=== PATIENT | female | born 1945 | race Caucasian/White ===

== ENCOUNTER 2017-02-04 21:32 | Inpatient (IN) | payer OTHER ==
[2017-02-04 23:21] VITALS: PULSE 63
[2017-02-05] VITALS (11 sets, daily range): BP systolic 104–148; BP diastolic 56–70; PULSE 59–72; RESP 18–19
[2017-02-05] MEDS ORDERED: HYDROCODONE/APAP (5/325) TAB PO PRN (03:00)
[2017-02-05] MEDS ORDERED: ONDANSETRON 4 MG INJ IV PRN (03:00)
[2017-02-05 08:37] LABS: BASOPHILS % 0.6 % (0.0-2.0); EOSINOPHILS # 0.2 10^3/ul (0.0-0.5); EOSINOPHILS % 3.3 % (0.0-7.0); HEMATOCRIT 46.5 % (37.0-47.0); HEMOGLOBIN 16.7 g/dl (12.0-16.0); LYMPHOCYTES # 2.4 10^3/ul (0.8-2.9); LYMPHOCYTES % 43.6 % (15.0-51.0); MEAN CORPUSCULAR HEMOGLOBIN 33.2 pg (29.0-33.0); MEAN CORPUSCULAR HGB CONC 35.9 g/dl (32.0-37.0); MEAN CORPUSCULAR VOLUME 92.4 fl (82.0-101.0); MEAN PLATELET VOLUME 11.8 fl (7.4-10.4); MONOCYTE # 0.4 10^3/ul (0.3-0.9); MONOCYTES % 8.1 % (0.0-11.0); NEUTROPHIL # 2.4 10^3/ul (1.6-7.5); NEUTROPHILS % 44.2 % (39.0-77.0); PLATELET COUNT 148 10^3/UL (140-415); RED BLOOD COUNT 5.03 10^6/ul (4.20-5.40); RED CELL DISTRIBUTION WIDTH 11.9 % (11.5-14.5); WHITE BLOOD COUNT 5.4 10^3/ul (4.8-10.8)
[2017-02-05] MEDS ORDERED: GABAPENTIN 100 MG CAP PO SCH (09:00)
[2017-02-05 09:18] LABS: CALCIUM 8.6 mg/dl (8.4-10.2); CREATININE 0.54 mg/dl (0.44-1.00); PHOSPHORUS 4.3 mg/dl (2.5-4.9); POTASSIUM 3.6 mmol/L (3.5-5.1)
--- NOTE | 2017-02-05 12:08 | HP ---
Date/Time of Note Date/Time of Note DATE: 02/05/17 TIME: 12:06 Assessment/Plan VTE Prophylaxis VTE Prophylaxis Intervention: SCD's Lines/Catheters IV C[facility]ter Type (from [facility]): [facility] Urinary Cath still in place: No Assessment/Plan Chief Complaint/Hosp Course 1. Seizure disorder with fall. 2. Anemia 3. Hypertension 4. Epilepsy 5. Schizophrenia. 6.GERD 7. obesity 8. dyslipidemia Problems: Assessment/Plan 1. continue seizure precautions 2. Dilantin on hold 3. Neurology Dr. Neal is on case 4. level Dilantin tomorrow 5. continue home meds HPI/ROS Admit Date/Time Admit Date/Time Feb 04, 2017 at 23:07 Hx of Present Illness Pt was [facility] [place] [facility] for increased seizure activity and recent seizure with fall to [facility]. Upon presentation, pt Dilantin level was high, 32, supratherapeutic. Pt was transferred from [facility] per insurance request. She had a nystagmus in [facility], no ataxia ROS poor response Subjective hx not possible: other (poor historian, does not remember) PMH/Family/Social Past Medical History Medical History: GERD, high cholesterol, hypertension Past Surgical History unable to determine pt is a poor historian Past Surgical Hx: no surgical history, other (Appendectomy. tubal ligatoion, tonsilectomy) Family History Significant Family History: diabetes Social History Alcohol Use: none Smoking Status: Never smoker Drug Use: none Exam/Review of Systems Vital Signs Vitals Vital Signs Date Time Temp Pulse Resp B/P Pulse Ox O2 Delivery O2 Flow Rate FiO2 02/05/17 11:43 98.0 55 19 104/65 96 Intake and Output 02/04/17 02/04/17 02/05/17 15:00 23:00 07:00 Intake Total 200 ml Output Total 3 ml Balance 197 ml Exam Constitutional: alert (name) Eyes: nl conjunctiva ENMT: nl external ears & nose Respiratory: diminished breath sounds Cardiovascular: regular rate and rhythm Gastrointestinal: soft Genitourinary - Female: nl adnexae Extremities: normal pulses Skin: nl turgor Lymph: nl lymph nodes Labs Result Diagram: 02/05/17 0745 02/05/17 0745 Medications Medications Current Medications Acetaminophen/ Hydrocodone Bitart ([place] (5/325)) 1 tab Q4H PRN PO pain; Start 02/05/17 at 03:00 Ondansetron HCl (Zofran Inj) 4 mg Q6H PRN IV NAUSEA AND/OR VOMITING; Start 02/11 at 03:00 Gabapentin (Neurontin) 100 mg TID PO Last administered on 02/05/17t 09:04; Admin Dose 100 MG; Start 02/05/17 at 09:00 FAUSTO OBRIEN Feb 05, 2017 12:08
[2017-02-05] MEDS ORDERED: LORAZEPAM 2 MG INJ IV PRN (12:30)
[2017-02-05] MEDS: GABAPENTIN 100 MG CAP PO SCH ×2 (13:52→21:20)
[2017-02-05] MEDS: METOPROLOL (XL) 25 MG TAB PO SCH (13:52)
[2017-02-05] MEDS: PHENOBARBITAL 32.4 MG TAB PO SCH (16:00)
--- NOTE | 2017-02-05 16:47 | CONS ---
DATE OF ADMISSION: 02/04/2017 DATE OF CONSULTATION: 02/05/2017 TYPE OF CONSULTATION: Neurology. Thank you for your kind referral for evaluation of intractable seizures. HISTORY OF PRESENT ILLNESS: The patient is a 71-year-old lady with lifelong history of seizures, wa s transferred from [facility]. She was taken to [facility] following a seizure at [facility]. She told me that she has history of generalized seizures since age 9 and usual frequency of seizures about once a month. MEDICATIONS: According to the chart, she was taking gabapentin, lamotrigine, phenobarbital and Dila ntin. There is some conflicting data regarding medication dosing, so I called the facility at [phone] and talked to a staff member there. According to him, patient is refusing all her medicatio ns with exception of Dilantin. I was told that the patient was getting Dilantin 1 two times a day. They are supposed to fax us medication administration note. Other medications which she was suppos to take were: 1. Lamotrigine 100 mg once a day. 2. Phenobarbital 64.8 twice daily. 3. Gabapentin 100 three times a day. 4. She was also supposed take Sertraline. 5. Aspirin. 6. Abilify. 7. Atorvastatin. Her Dilantin level is 36. It was put on hold and patient was transferred here. PAST MEDICAL HISTORY: Dyslipidemia, schizophrenia. SOCIAL HISTORY: No alcohol, tobacco, drug use. FAMILY HISTORY: Noncontributory. PHYSICAL EXAMINATION VITAL SIGNS: Today, 98.0 temperature, pulse 55, 19 respirations, 104/65 blood pressure. GENERAL: She is not in acute distress, lying in bed. HEENT: Normocephalic, atraumatic head. NECK: No carotid bruits. No thyromegaly. LUNGS: Clear to auscultation bilaterally. CARDIAC: Normal cardiac rhythm and sounds. ABDOMEN: Soft, nontender. EXTREMITIES: No cyanosis, clubbing or edema. NEUROLOGIC: She is awake, alert, and oriented x2. She knows the year, but not the date, and the mo nth. Fluent speech. Overall, cooperative with examination. Present response to visual threat bila terally. Pupils reactive from 3 to 2 mm bilaterally. Extraocular movements intact without nystagmu s. Symmetrical face. Preserved facial strength and sensation. Tongue is in midline. Palate eleva ashish symmetrically. Motor strength examination seems to be preserved in all extremities. Normal bul k, tone, and strength. Sensory examination intact to light touch, pain and vibration. Deep tendon reflexes 2+ upper extremities, absent in lower extremities. Downgoing toes bilaterally. Coordinati on preserved on uziytx-ab-awyrus testing. No dysmetria or tremor. Gait essentially normal. CURRENT MEDICATIONS: Patient's medications here include: 1. Protonix 40. 2. Iron. 3. Atorvastatin 40. 4. Gabapentin 100 three times a day. 5. [place] p.r.n. 6. Zofran. Her labs show normal CBC, normal basic metabolic panel. Dilantin level 34 today. IMPRESSION: Intractable seizure disorder. The patient is noncompliant with most of her medications and the only medication she was compliant with caused her to have toxic level. There were some com plaints of dizziness prior to admission, not anymore. Patient states to me that she wants to continue her phenobarbital and that she thought she was takin g at her facility, not Dilantin, so I think it is reasonable to restart her phenobarbital 64.8 mg tw ice daily. Continue not restarting Dilantin, checking her Dilantin level. Thank you very much for this interesting consultation. I forgot to mention, the patient has some orolingual dystonic movements. Given her history of schiz ophrenia, likely tardive dyskinesia. Dictated By: CRIS PEGUERO/MAKENZIE Conf#: [id number] DID#: [id number] CC: JOSE DAVID MURILLO MD;*End*
[2017-02-05] MEDS: FERROUS SULFATE (SR) 142 MG TAB PO SCH (21:20)
[2017-02-05] MEDS: ATORVASTATIN 40 MG TAB PO SCH (21:20)
[2017-02-06] VITALS (12 sets, daily range): BP systolic 91–110; BP diastolic 50–58; PULSE 57–61; RESP 18
[2017-02-06] MEDS: PANTOPRAZOLE (EC) 40 MG TAB PO SCH (05:35)
[2017-02-06 07:27] LABS: BASOPHILS % 0.3 % (0.0-2.0); EOSINOPHILS # 0.2 10^3/ul (0.0-0.5); EOSINOPHILS % 2.1 % (0.0-7.0); HEMATOCRIT 46.9 % (37.0-47.0); HEMOGLOBIN 15.7 g/dl (12.0-16.0); LYMPHOCYTES # 2.6 10^3/ul (0.8-2.9); LYMPHOCYTES % 29.7 % (15.0-51.0); MEAN CORPUSCULAR HEMOGLOBIN 31.8 pg (29.0-33.0); MEAN CORPUSCULAR HGB CONC 33.5 g/dl (32.0-37.0); MEAN CORPUSCULAR VOLUME 95.1 fl (82.0-101.0); MEAN PLATELET VOLUME 11.4 fl (7.4-10.4); MONOCYTE # 0.6 10^3/ul (0.3-0.9); MONOCYTES % 6.6 % (0.0-11.0); NEUTROPHIL # 5.3 10^3/ul (1.6-7.5); PLATELET COUNT 188 10^3/UL (140-415); RED BLOOD COUNT 4.93 10^6/ul (4.20-5.40); RED CELL DISTRIBUTION WIDTH 12.4 % (11.5-14.5); WHITE BLOOD COUNT 8.8 10^3/ul (4.8-10.8)
[2017-02-06 08:08] LABS: ALBUMIN 3.6 g/dl (3.3-4.9); ALBUMIN/GLOBULIN RATIO 1.09; BILIRUBIN,INDIRECT 0.2 mg/dl (0-1.1); BILIRUBIN,TOTAL 0.2 mg/dl (0.2-1.3); CALCIUM 8.6 mg/dl (8.4-10.2); CREATININE 0.56 mg/dl (0.44-1.00); POTASSIUM 3.9 mmol/L (3.5-5.1); TOTAL PROTEIN 6.9 g/dl (6.1-8.1)
[2017-02-06] MEDS: GABAPENTIN 100 MG CAP PO SCH ×3 (08:25→20:26)
[2017-02-06] MEDS: FERROUS SULFATE (SR) 142 MG TAB PO SCH (08:25)
[2017-02-06] MEDS: METOPROLOL (XL) 25 MG TAB PO SCH (08:26)
[2017-02-06] MEDS: PHENOBARBITAL 32.4 MG TAB PO SCH ×2 (08:26→20:26)
--- NOTE | 2017-02-06 08:56 | PN ---
Date/Time of Note Date/Time of Note DATE: 02/06/17 TIME: 08:55 Assessment/Plan VTE Prophylaxis VTE Prophylaxis Intervention: ambulation Lines/Catheters IV [facility]ter Type (from [facility] Saline Lock Urinary Cath still in place: No Assessment/Plan Chief Complaint/Hosp Course 1. Seizure disorder with fall. 2. Anemia 3. Hypertension 4. Epilepsy 5. Schizophrenia. 6.GERD 7. obesity 8. dyslipidemia Problems: Assessment/Plan 1. Continue medications 2. continue seizure precautions. Subjective 24 Hr Interval Summary Free Text/Dictation do not feel well Exam/Review of Systems Vital Signs Vitals Vital Signs Date Time Temp Pulse Resp B/P Pulse Ox O2 Delivery O2 Flow Rate FiO2 02/06/17 08:07 99.1 60 18 109/58 94 Intake and Output 02/05/17 02/05/17 02/06/17 15:00 23:00 07:00 Intake Total 650 ml 300 ml Output Total 4 ml 3 ml Balance 646 ml 297 ml Exam Constitutional: alert, oriented Eyes: nl conjunctiva Neck: supple Respiratory: clear to auscultation Cardiovascular: regular rate and rhythm Gastrointestinal: soft Results Result Diagram: 02/06/17 0645 02/06/17 0645 Results 24 hrs Laboratory Tests Test 02/06/17 06:45 White Blood Count 8.8 # Red Blood Count 4.93 Hemoglobin 15.7 Hematocrit 46.9 Mean Corpuscular Volume 95.1 Mean Corpuscular Hemoglobin 31.8 Mean Corpuscular Hemoglobin Concent 33.5 Red Cell Distribution Width 12.4 Platelet Count 188 # Mean Platelet Volume 11.4 H Neutrophils % 61.0 Lymphocytes % 29.7 Monocytes % 6.6 Eosinophils % 2.1 Basophils % 0.3 Nucleated Red Blood Cells % 0.0 Neutrophils # 5.3 Lymphocytes # 2.6 Monocytes # 0.6 Eosinophils # 0.2 Basophils # 0.0 Nucleated Red Blood Cells # 0.0 Sodium Level 140 Potassium Level 3.9 Chloride Level 100 Carbon Dioxide Level 32 H Anion Gap 12 Blood Urea Nitrogen 16 Creatinine 0.56 Glucose Level 91 Calcium Level 8.6 Total Bilirubin 0.2 Direct Bilirubin 0.00 Indirect Bilirubin 0.2 Aspartate Amino Transf (AST/SGOT) 50 H Alanine Aminotransferase (ALT/SGPT) 53 Alkaline Phosphatase 192 H Total Protein 6.9 Albumin 3.6 Globulin 3.30 H Albumin/Globulin Ratio 1.09 Phenytoin (Dilantin) Level Pending Medications Medications Current Medications Acetaminophen/ Hydrocodone Bitart ([place] (5/325)) 1 tab Q4H PRN PO pain; Start 02/05/17 at 03:00 Ondansetron HCl (Zofran Inj) 4 mg Q6H PRN IV NAUSEA AND/OR VOMITING; Start 02/11 at 03:00 Lorazepam (Ativan) 1 mg Q6H PRN IV ANXIETY and seizures; Start 02/05/17 at 12: 30 Pantoprazole (Protonix Tab) 40 mg DAILY@06 PO Last administered on 02/06/17 05:35; Admin Dose 40 MG; Start 02/06/17 at 06:00 Gabapentin (Neurontin) 100 mg TID PO Last administered on 02/06/17 08:25; Admin Dose 100 MG; Start 02/05/17 at 13:00 Ferrous Sulfate (Slow Fe) 142 mg BID PO Last administered on 02/06/17 08:25; Admin Dose 142 MG; Start 02/05/17 at 21:00 Metoprolol Succinate (Toprol Xl) 25 mg DAILY PO Last administered on 08:26; Admin Dose 25 MG; Start 02/05/17 at 12:30 Atorvastatin Calcium (Lipitor) 40 mg HS PO Last administered on 02/05/17 21: 20; Admin Dose 40 MG; Start 02/05/17 at 21:00 Phenobarbital (Luminal) 64.8 mg BID PO Last administered on 02/06/17 08:26; Admin Dose 64.8 MG; Start 02/05/17 at 16:00 FAUSTO OBRIEN Feb 06, 2017 08:56
[2017-02-06] MEDS: ENOXAPARIN 30 MG/0.3 ML SYG SC SCH (10:04)
--- NOTE | 2017-02-06 15:12 | CONS ---
Date/Time of Note Date/Time of Note DATE: 02/06/17 TIME: 15:00 Consult Date/Type/Reason Admit Date/Time Feb 04, 2017 at 23:07 Initial Consult Date Type of Consultation: neurology Subjective no seizures Objective Vital Signs Date Time Temp Pulse Resp B/P Pulse Ox O2 Delivery O2 Flow Rate FiO2 02/06/17 12:04 98.7 55 18 110/53 94 Intake and Output 02/05/17 02/05/17 02/06/17 15:00 23:00 07:00 Intake Total 650 ml 300 ml Output Total 4 ml 3 ml Balance 646 ml 297 ml Results/Medications Result Diagram: 02/06/17 0645 02/06/17 0645 Results 24 hrs Laboratory Tests Test 02/06/17 06:45 White Blood Count 8.8 # Red Blood Count 4.93 Hemoglobin 15.7 Hematocrit 46.9 Mean Corpuscular Volume 95.1 Mean Corpuscular Hemoglobin 31.8 Mean Corpuscular Hemoglobin Concent 33.5 Red Cell Distribution Width 12.4 Platelet Count 188 # Mean Platelet Volume 11.4 H Neutrophils % 61.0 Lymphocytes % 29.7 Monocytes % 6.6 Eosinophils % 2.1 Basophils % 0.3 Nucleated Red Blood Cells % 0.0 Neutrophils # 5.3 Lymphocytes # 2.6 Monocytes # 0.6 Eosinophils # 0.2 Basophils # 0.0 Nucleated Red Blood Cells # 0.0 Sodium Level 140 Potassium Level 3.9 Chloride Level 100 Carbon Dioxide Level 32 H Anion Gap 12 Blood Urea Nitrogen 16 Creatinine 0.56 Glucose Level 91 Calcium Level 8.6 Total Bilirubin 0.2 Direct Bilirubin 0.00 Indirect Bilirubin 0.2 Aspartate Amino Transf (AST/SGOT) 50 H Alanine Aminotransferase (ALT/SGPT) 53 Alkaline Phosphatase 192 H Total Protein 6.9 Albumin 3.6 Globulin 3.30 H Albumin/Globulin Ratio 1.09 Phenytoin (Dilantin) Level 18.6 Medications Current Medications Acetaminophen/ Hydrocodone Bitart ([place] (5/325)) 1 tab Q4H PRN PO pain; Start 02/05/17 at 03:00 Ondansetron HCl (Zofran Inj) 4 mg Q6H PRN IV NAUSEA AND/OR VOMITING; Start 02/11 at 03:00 Lorazepam (Ativan) 1 mg Q6H PRN IV ANXIETY and seizures; Start 02/05/17 at 12: 30 Pantoprazole (Protonix Tab) 40 mg DAILY@06 PO Last administered on 02/06/17 05:35; Admin Dose 40 MG; Start 02/06/17 at 06:00 Gabapentin (Neurontin) 100 mg TID PO Last administered on 02/06/17 12:25; Admin Dose 100 MG; Start 02/05/17 at 13:00 Ferrous Sulfate (Slow Fe) 142 mg BID PO Last administered on 02/06/17 08:25; Admin Dose 142 MG; Start 02/05/17 at 21:00 Metoprolol Succinate (Toprol Xl) 25 mg DAILY PO Last administered on 08:26; Admin Dose 25 MG; Start 02/05/17 at 12:30 Atorvastatin Calcium (Lipitor) 40 mg HS PO Last administered on 02/05/17 21: 20; Admin Dose 40 MG; Start 02/05/17 at 21:00 Phenobarbital (Luminal) 64.8 mg BID PO Last administered on 02/06/17 08:26; Admin Dose 64.8 MG; Start 02/05/17 at 16:00 Enoxaparin Sodium (Lovenox) 30 mg DAILY SC Last administered on 02/06/17 10: 04; Admin Dose 30 MG; Start 02/06/17 at 09:00 Assessment/Plan Chief Complaint/Hosp Course NEUROLOGIC: She is awake, alert, and oriented x2. Fluent speech. Overall, cooperative with examination. Present response to visual threat bilaterally. Pupils reactive from 3 to 2 mm bilaterally. Extraocular movements intact without nystagmus. Symmetrical face. Preserved facial strength and sensation. Tongue is in midline. Palate elevates symmetrically. Motor strength examination seems to be preserved in all extremities. Normal bulk, tone, and strength. Sensory examination intact to light touch, pain and vibration. Deep tendon reflexes 2+ upper extremities, absent in lower extremities. Downgoing toes bilaterally. Coordination preserved on kmsfty-bj-zmfiat testing. No dysmetria or tremor. orolingual dystonic movements Dilantin level 18 today. IMPRESSION: Intractable seizure disorder. The patient has been noncompliant with most of her medications. Hx of fluctuating dilantin levels, frequently toxic range, per [facility] records. Patient states that she wants to continue her phenobarbital, was restarted on phenobarbital 64.8 mg twice daily. OK not to start dilantin, or other medications, she has been refusing in the past. PT eval of gait Problems: CRIS IVERSON MD Feb 06, 2017 15:12
[2017-02-06] MEDS: ATORVASTATIN 40 MG TAB PO SCH (20:26)
[2017-02-07] VITALS (13 sets, daily range): BP systolic 87–115; BP diastolic 47–64; PULSE 54–61; RESP 14–19
[2017-02-07] MEDS: FERROUS SULFATE (SR) 142 MG TAB PO SCH ×3 (00:53→21:00)
[2017-02-07] MEDS: PANTOPRAZOLE (EC) 40 MG TAB PO SCH (05:07)
[2017-02-07] MEDS: GABAPENTIN 100 MG CAP PO SCH ×3 (09:12→20:53)
[2017-02-07] MEDS: PHENOBARBITAL 32.4 MG TAB PO SCH ×2 (09:13→20:54)
[2017-02-07] MEDS: METOPROLOL (XL) 25 MG TAB PO SCH (09:13)
[2017-02-07] MEDS: ENOXAPARIN 30 MG/0.3 ML SYG SC SCH (09:14)
--- NOTE | 2017-02-07 13:24 | PN ---
Date/Time of Note Date/Time of Note DATE: 02/07/17 TIME: 13:14 Assessment/Plan VTE Prophylaxis VTE Prophylaxis Intervention: LMWH Lines/Catheters IV Catheter Type (from Nrs): Saline Lock Urinary Cath still in place: No Assessment/Plan Chief Complaint/Hosp Course 71 y/o with # Fall with poor balance , ataxic gait? cerebellum involvement # Seizure disorder with fall. # Anemia #. Hypertension # Epilepsy # Schizophrenia. #.GERD #. obesity # dyslipidemia Recs - Spoke to Dr Espinosa. will do MRI brain/brainstem today to r/o brainstem ischemia - c/w ASA/ statin - Spoke to Dr Espinosa who spoke to facility where she was residing pt was refusing all meds except dilantin, pt was supposed to be on multiple meds, will continue on pheobarb and gabapentin for now - restart ariprazole 15 mg - Pt will likely need Snif Problems: Subjective 24 Hr Interval Summary Free Text/Dictation Pt ataxic, leans from side to side upon ambulation No seizures Exam/Review of Systems Vital Signs Vitals Vital Signs Date Time Temp Pulse Resp B/P Pulse Ox O2 Delivery O2 Flow Rate FiO2 02/07/17 12:14 57 02/07/17 11:32 98.0 19 96/53 96 Intake and Output 02/06/17 02/06/17 02/07/17 15:00 23:00 07:00 Intake Total 650 ml 360 ml Balance 650 ml 360 ml Exam HEENT: Normocephalic, atraumatic head. NECK: No carotid bruits. No thyromegaly. LUNGS: Clear to auscultation bilaterally. CARDIAC: Normal cardiac rhythm and sounds. ABDOMEN: Soft, nontender. EXTREMITIES: No cyanosis, clubbing or edema. NEUROLOGIC: She is awake, alert, and oriented x2. She knows the year, but not the date, and the month. Fluent speech. Overall, cooperative with examination. Pres. Deep tendon reflexes 2+ upper extremities, absent in lower extremities. Downgoing toes bilaterally. Coordination preserved on finger-to- finger testing. No dysmetria or tremor. Gait leans side to side Results Result Diagram: 02/06/17 0645 02/06/1745 Medications Medications Current Medications Acetaminophen/ Hydrocodone Bitart ([place] (5/325)) 1 tab Q4H PRN PO pain; Start 02/05/17 at 03:00 Ondansetron HCl (Zofran Inj) 4 mg Q6H PRN IV NAUSEA AND/OR VOMITING; Start 02/11 at 03:00 Lorazepam (Ativan) 1 mg Q6H PRN IV ANXIETY and seizures; Start 02/05/17 at 12: 30 Pantoprazole (Protonix Tab) 40 mg DAILY@06 PO Last administered on 02/07/17 05:07; Admin Dose 40 MG; Start 02/06/17 at 06:00 Gabapentin (Neurontin) 100 mg TID PO Last administered on 02/07/17 09:12; Admin Dose 100 MG; Start 02/05/17 at 13:00 Ferrous Sulfate (Slow Fe) 142 mg BID PO Last administered on 02/07/17 00:53; Admin Dose 142 MG; Start 02/05/17 at 21:00 Metoprolol Succinate (Toprol Xl) 25 mg DAILY PO Last administered on 09:13; Admin Dose 25 MG; Start 02/05/17 at 12:30 Atorvastatin Calcium (Lipitor) 40 mg HS PO Last administered on 02/06/17 20: 26; Admin Dose 40 MG; Start 02/05/17 at 21:00 Phenobarbital (Luminal) 64.8 mg BID PO Last administered on 02/07/17 09:13; Admin Dose 64.8 MG; Start 02/05/17 at 16:00 Enoxaparin Sodium (Lovenox) 30 mg DAILY SC Last administered on 02/07/17 09: 14; Admin Dose 30 MG; Start 02/06/17 at 09:00 DOLLY DE SOUZA MD Feb 07, 2017 13:24
[2017-02-07] MEDS: ASPIRIN (EC) 81 MG TAB PO SCH (15:11)
--- NOTE | 2017-02-07 15:21 | RADRPT ---
PROCEDURE: US Carotids. CLINICAL INDICATION: bruit , SYNCOPE TECHNIQUE: Multiple sonographic of the carotid bifurcation region and vertebral arteries were obta ined utilizing sosa scale, duplex and color-flow imaging. The images were reviewed on a PACS worksta tion. COMPARISON: No prior studies are available for comparison. FINDINGS: Evaluation of the right carotid bifurcation region reveals no significant calcific atherosclerotic d isease. Evaluation of the left carotid bifurcation region reveals no significant calcific atherosclerotic di sease. There is antegrade flow within the vertebral arteries bilaterally. RIGHT CAROTID MEASUREMENTS: Common Carotid Cinbui67.2 (cm/sec) Internal Carotid Artery - atljnkgo25.2 (cm/sec) Internal Carotid Artery - mid39.5 (cm/sec) Internal Carotid Artery - qoekcf73.9 (cm/sec) Internal Carotid/Common Carotid1.19 LEFT CAROTID MEASUREMENTS: Common Carotid Eyzjtu77.5 (cm/sec) Internal Carotid Artery - kheymcph52.5 (cm/sec) Internal Carotid Artery - mid43.4 (cm/sec) Internal Carotid Artery - gcytah84.6 (cm/sec) Internal Carotid/Common Carotid0.68 RPTAT: AA IMPRESSION: No evidence for hemodynamically significant stenosis in the bilateral internal carotid arteries - va lidated velocity measurements with angiographic measurements, velocity criteria are extrapolated fro m diameter data as defined by the Society of Radiologists in Ultrasound Consensus Conference Radiolo gy 2003; 229;340-346. This study does indirectly reference the measurement of the distal ICA diamet er as the denominator for stenosis measurement. Normal antegrade flow in the vertebral arteries bilaterally. .Basilio Hernandez MD, MD Date Time Electronically viewed and signed by .Basilio Hernandez MD, on 02/07/2017 15:21 .S/
--- NOTE | 2017-02-07 17:11 | RADRPT ---
PROCEDURE: MRI Brain without contrast. CLINICAL INDICATION: Ataxia. Chronic digoxin toxicity. TECHNIQUE: An MRI of the brain was performed utilizing the following sequences: Sagittal and axial T1 weighted, axial T2 weighted, axial diffusion weighted with ADC mapping, coronal GRE, and axial F LAIR. COMPARISON: None. FINDINGS: No diffusion weighted abnormalities are seen to suggest the presence of acute ischemia or recent inf arct. No hypointense signal abnormalities are seen on the GRE images to suggest the presence of blo od degradation products. There is no evidence of intracranial hemorrhage, mass effect, or midline s hift. No extra-axial fluid collections are seen. The ventricles and sulci are mildly enlarged indica tive of volume loss. There are mild scattered foci of T2 FLAIR hyperintensity in the periventricular, deep, and subcortic al white matter, which are nonspecific in etiology but likely reflect chronic small vessel ischemic changes. No abnormal intracranial vascular flow void is noted. There is deformity of the right lamina papyrac ea, likely chronic. The visualized paranasal sinuses demonstrate mild scattered mucosal thickening m ainly in ethmoid air cells. IMPRESSION: 1. No acute intracranial hemorrhage, infarction or mass. 2. Mild chronic small vessel ischemic changes. 3. Mild generalized cerebral volume loss. RPTAT: HH .Jessica Beckman MD, Date Time Electronically viewed and signed by .Jessica Beckman MD, MD on 02/07/2017 17:10 .N/
[2017-02-07] MEDS: ATORVASTATIN 40 MG TAB PO SCH (20:53)
--- NOTE | 2017-02-07 23:32 | CONS ---
Date/Time of Note Date/Time of Note DATE: 02/07/17 TIME: 23:30 Consult Date/Type/Reason Admit Date/Time Feb 04, 2017 at 23:07 Type of Consultation: neurology Subjective no seizures, unsteady walk Objective Vital Signs Date Time Temp Pulse Resp B/P Pulse Ox O2 Delivery O2 Flow Rate FiO2 02/07/17 20:00 61 02/07/17 19:45 98.6 16 90/59 95 Intake and Output 02/06/17 02/06/17 02/07/17 14:59 22:59 06:59 Intake Total 650 ml 360 ml Balance 650 ml 360 ml Results/Medications Result Diagram: 02/06/1745 02/06/17 0645 Medications Current Medications Acetaminophen/ Hydrocodone Bitart ([place] (5/325)) 1 tab Q4H PRN PO pain; Start 02/05/17 at 03:00 Ondansetron HCl (Zofran Inj) 4 mg Q6H PRN IV NAUSEA AND/OR VOMITING; Start 02/11 at 03:00 Lorazepam (Ativan) 1 mg Q6H PRN IV ANXIETY and seizures; Start 02/05/17 at 12: 30 Pantoprazole (Protonix Tab) 40 mg DAILY@06 PO Last administered on 02/07/17 05:07; Admin Dose 40 MG; Start 02/06/17 at 06:00 Gabapentin (Neurontin) 100 mg TID PO Last administered on 02/07/17 20:53; Admin Dose 100 MG; Start 02/05/17 at 13:00 Ferrous Sulfate (Slow Fe) 142 mg BID PO Last administered on 02/07/17 00:53; Admin Dose 142 MG; Start 02/05/17 at 21:00 Metoprolol Succinate (Toprol Xl) 25 mg DAILY PO Last administered on 09:13; Admin Dose 25 MG; Start 02/05/17 at 12:30 Atorvastatin Calcium (Lipitor) 40 mg HS PO Last administered on 02/07/17 20: 53; Admin Dose 40 MG; Start 02/05/17 at 21:00 Phenobarbital (Luminal) 64.8 mg BID PO Last administered on 02/07/17 20:54; Admin Dose 64.8 MG; Start 02/05/17 at 16:00 Enoxaparin Sodium (Lovenox) 30 mg DAILY SC Last administered on 02/07/17 09: 14; Admin Dose 30 MG; Start 02/06/17 at 09:00 Aspirin (Halfprin) 81 mg DAILY PO Last administered on 02/07/17 15:11; Admin Dose 81 MG; Start 02/07/17 at 13:30 Aripiprazole (Abilify) 15 mg DAILY PO ; Start 02/08/17 at 09:00 Assessment/Plan Chief Complaint/Hosp Course NEUROLOGIC: She is awake, alert, and oriented x2. Fluent speech. Overall, cooperative with examination. Present response to visual threat bilaterally. Pupils reactive from 3 to 2 mm bilaterally. Extraocular movements intact without nystagmus. Symmetrical face. Preserved facial strength and sensation. Tongue is in midline. Palate elevates symmetrically. Motor strength examination seems to be preserved in all extremities. Normal bulk, tone, and strength. Sensory examination intact to light touch, pain and vibration. Deep tendon reflexes 2+ upper extremities, absent in lower extremities. Downgoing toes bilaterally. Coordination preserved on kjufzp-hc-lpwrhq testing. No dysmetria or tremor. orolingual dystonic movements. IMPRESSION: Intractable seizure disorder. The patient has been noncompliant with most of her medications. Hx of fluctuating dilantin levels, frequently toxic range, per [facility] records. Patient states that she wants to continue her phenobarbital, was restarted on phenobarbital 64.8 mg twice daily. OK not to start dilantin, or other medications, she has been refusing in the past. MRI brain no acute abnormality. Continue PT. Problems: CRIS IVERSON MD Feb 07, 2017 23:32
[2017-02-08] VITALS (11 sets, daily range): BP systolic 81–105; BP diastolic 46–67; PULSE 58–71; RESP 16–20
[2017-02-08] MEDS: PANTOPRAZOLE (EC) 40 MG TAB PO SCH (06:14)
[2017-02-08] MEDS: ARIPIPRAZOLE 5 MG TAB PO SCH (08:30)
[2017-02-08] MEDS: ASPIRIN (EC) 81 MG TAB PO SCH (08:31)
[2017-02-08] MEDS: GABAPENTIN 100 MG CAP PO SCH ×3 (08:31→21:37)
[2017-02-08] MEDS: PHENOBARBITAL 32.4 MG TAB PO SCH ×2 (08:32→21:37)
[2017-02-08] MEDS: ENOXAPARIN 30 MG/0.3 ML SYG SC SCH (09:00)
[2017-02-08] MEDS: METOPROLOL (XL) 25 MG TAB PO SCH (09:00)
[2017-02-08] MEDS: FERROUS SULFATE (SR) 142 MG TAB PO SCH ×2 (12:57→21:37)
--- NOTE | 2017-02-08 15:50 | PN ---
Date/Time of Note Date/Time of Note DATE: 02/08/17 TIME: 15:48 Assessment/Plan VTE Prophylaxis VTE Prophylaxis Intervention: other Lines/Catheters IV Catheter Type (from Nrs): Saline Lock Urinary Cath still in place: No Assessment/Plan Chief Complaint/Hosp Course 71 y/o with # Hypotension r/o sepsis # Fall with poor balance , ataxic gait? cerebellum involvement # Seizure disorder with fall. # Anemia #. Hypertension # Epilepsy # Schizophrenia. #.GERD #. obesity # dyslipidemia Recs - orthostatics - NS 500 bolus - iv NS - MRI negative - c/w ASA/ statin - check labs - will continue on pheobarb and gabapentin for now - restart ariprazole 15 mg - SNIF placement when medically cleared Problems: Subjective 24 Hr Interval Summary Free Text/Dictation Hypotensive since yesterday No dizziness Exam/Review of Systems Vital Signs Vitals Vital Signs Date Time Temp Pulse Resp B/P Pulse Ox O2 Delivery O2 Flow Rate FiO2 02/08/17 12:00 58 02/08/17 11:45 98.9 20 89/56 95 Intake and Output 02/07/17 02/07/17 02/08/17 15:00 23:00 07:00 Intake Total 20 ml 480 ml Balance 20 ml 480 ml Exam xam HEENT: Normocephalic, atraumatic head. NECK: No carotid bruits. No thyromegaly. LUNGS: Clear to auscultation bilaterally. CARDIAC: Normal cardiac rhythm and sounds. ABDOMEN: Soft, nontender. EXTREMITIES: No cyanosis, clubbing or edema. NEUROLOGIC: She is awake, alert, and oriented x2. She knows the year, but not the date, and the month. Fluent speech. Overall, cooperative with examination. Pres. Deep tendon reflexes 2+ upper extremities, absent in lower extremities. Downgoing toes bilaterally. Coordination preserved on finger-to- finger testing. No dysmetria or tremor. Gait leans side to side Results Result Diagram: 02/06/1745 02/06/1745 Medications Medications Current Medications Acetaminophen/ Hydrocodone Bitart ([place] (5/325)) 1 tab Q4H PRN PO pain; Start 02/05/17 at 03:00 Ondansetron HCl (Zofran Inj) 4 mg Q6H PRN IV NAUSEA AND/OR VOMITING; Start 02/11 at 03:00 Lorazepam (Ativan) 1 mg Q6H PRN IV ANXIETY and seizures; Start 02/05/17 at 12: 30 Pantoprazole (Protonix Tab) 40 mg DAILY@06 PO Last administered on 02/08/17 06:14; Admin Dose 40 MG; Start 02/06/17 at 06:00 Gabapentin (Neurontin) 100 mg TID PO Last administered on 02/08/17 12:57; Admin Dose 100 MG; Start 02/05/17 at 13:00 Ferrous Sulfate (Slow Fe) 142 mg BID PO Last administered on 02/08/17 12:57; Admin Dose 142 MG; Start 02/05/17 at 21:00 Metoprolol Succinate (Toprol Xl) 25 mg DAILY PO Last administered on 09:13; Admin Dose 25 MG; Start 02/05/17 at 12:30 Atorvastatin Calcium (Lipitor) 40 mg HS PO Last administered on 02/07/17 20: 53; Admin Dose 40 MG; Start 02/05/17 at 21:00 Phenobarbital (Luminal) 64.8 mg BID PO Last administered on 02/08/17 08:32; Admin Dose 64.8 MG; Start 02/05/17 at 16:00 Enoxaparin Sodium (Lovenox) 30 mg DAILY SC Last administered on 02/07/17 09: 14; Admin Dose 30 MG; Start 02/06/17 at 09:00 Aspirin (Halfprin) 81 mg DAILY PO Last administered on 02/08/17 08:31; Admin Dose 81 MG; Start 02/07/17 at 13:30 Aripiprazole 15 mg 15 mg DAILY PO Last administered on 02/08/17 08:30; Admin Dose 15 MG; Start 02/08/17 at 09:00 Sodium Chloride (NS) 500 ml @ 500 mls/hr Q1H ONCE IV ; Start 02/08/17 at 16:00 ; Stop 02/08/17 at 16:59; Status DOLLY MAE MD Feb 08, 2017 15:50
[2017-02-08] MEDS: SOD CHLORIDE 0.9% 500 ML IV ONE ×2 (16:18→19:27)
[2017-02-08] MEDS: SOD CHLORIDE 0.9% 1,000 ML IV SCH ×2 (16:18→19:27)
[2017-02-08 16:30] LABS: BASOPHILS % 0.3 % (0.0-2.0); EOSINOPHILS # 0.3 10^3/ul (0.0-0.5); EOSINOPHILS % 4.1 % (0.0-7.0); HEMATOCRIT 44.7 % (37.0-47.0); HEMOGLOBIN 15.3 g/dl (12.0-16.0); LYMPHOCYTES # 2.7 10^3/ul (0.8-2.9); LYMPHOCYTES % 44.9 % (15.0-51.0); MEAN CORPUSCULAR HGB CONC 34.2 g/dl (32.0-37.0); MEAN CORPUSCULAR VOLUME 96.3 fl (82.0-101.0); MEAN PLATELET VOLUME 11.2 fl (7.4-10.4); MONOCYTE # 0.4 10^3/ul (0.3-0.9); NEUTROPHIL # 2.6 10^3/ul (1.6-7.5); NEUTROPHILS % 43.5 % (39.0-77.0); PLATELET COUNT 167 10^3/UL (140-415); RED BLOOD COUNT 4.64 10^6/ul (4.20-5.40); RED CELL DISTRIBUTION WIDTH 11.7 % (11.5-14.5)
[2017-02-08 16:50] LABS: CALCIUM 8.5 mg/dl (8.4-10.2); CREATININE 0.61 mg/dl (0.44-1.00); POTASSIUM 4.7 mmol/L (3.5-5.1)
[2017-02-08] MEDS: ATORVASTATIN 40 MG TAB PO SCH (21:37)
--- NOTE | 2017-02-08 23:15 | CONS ---
Date/Time of Note Date/Time of Note DATE: 02/08/17 TIME: 23:15 Consult Date/Type/Reason Admit Date/Time Feb 04, 2017 at 23:07 Type of Consultation: neurology Subjective no new problems, no seizures Objective Vital Signs Date Time Temp Pulse Resp B/P Pulse Ox O2 Delivery O2 Flow Rate FiO2 02/08/17 20:00 61 02/08/17 19:57 98.5 18 105/58 98 Intake and Output 02/07/17 02/07/17 02/08/17 15:00 23:00 07:00 Intake Total 20 ml 480 ml Balance 20 ml 480 ml Results/Medications Result Diagram: 02/08/17 1541 02/08/17 1541 Results 24 hrs Laboratory Tests Test 02/08/17 15:41 White Blood Count 6.0 # Red Blood Count 4.64 Hemoglobin 15.3 Hematocrit 44.7 Mean Corpuscular Volume 96.3 Mean Corpuscular Hemoglobin 33.0 Mean Corpuscular Hemoglobin Concent 34.2 Red Cell Distribution Width 11.7 Platelet Count 167 Mean Platelet Volume 11.2 H Neutrophils % 43.5 Lymphocytes % 44.9 Monocytes % 7.0 Eosinophils % 4.1 Basophils % 0.3 Nucleated Red Blood Cells % 0.0 Neutrophils # 2.6 Lymphocytes # 2.7 Monocytes # 0.4 Eosinophils # 0.3 Basophils # 0.0 Nucleated Red Blood Cells # 0.0 Sodium Level 139 Potassium Level 4.7 Chloride Level 99 Carbon Dioxide Level 34 H Anion Gap 11 Blood Urea Nitrogen 16 Creatinine 0.61 Glucose Level 116 Calcium Level 8.5 Medications Current Medications Acetaminophen/ Hydrocodone Bitart ([place] (5/325)) 1 tab Q4H PRN PO pain; Start 02/05/17 at 03:00 Ondansetron HCl (Zofran Inj) 4 mg Q6H PRN IV NAUSEA AND/OR VOMITING; Start 02/11 at 03:00 Lorazepam (Ativan) 1 mg Q6H PRN IV ANXIETY and seizures; Start 02/05/17 at 12: 30 Pantoprazole (Protonix Tab) 40 mg DAILY@06 PO Last administered on 02/08/17 06:14; Admin Dose 40 MG; Start 02/06/17 at 06:00 Gabapentin (Neurontin) 100 mg TID PO Last administered on 02/08/17 21:37; Admin Dose 100 MG; Start 02/05/17 at 13:00 Ferrous Sulfate (Slow Fe) 142 mg BID PO Last administered on 02/08/17 21:37; Admin Dose 142 MG; Start 02/05/17 at 21:00 Atorvastatin Calcium (Lipitor) 40 mg HS PO Last administered on 02/08/17 21: 37; Admin Dose 40 MG; Start 02/05/17 at 21:00 Phenobarbital (Luminal) 64.8 mg BID PO Last administered on 02/08/17 21:37; Admin Dose 64.8 MG; Start 02/05/17 at 16:00 Enoxaparin Sodium (Lovenox) 30 mg DAILY SC Last administered on 02/07/17 09: 14; Admin Dose 30 MG; Start 02/06/17 at 09:00 Aspirin (Halfprin) 81 mg DAILY PO Last administered on 02/08/17 08:31; Admin Dose 81 MG; Start 02/07/17 at 13:30 Aripiprazole 15 mg 15 mg DAILY PO Last administered on 02/08/17 08:30; Admin Dose 15 MG; Start 02/08/17 at 09:00 Sodium Chloride (NS) 1,000 ml @ 50 mls/hr Q20H IV ; Start 02/08/17 at 16:00 Assessment/Plan Chief Complaint/Hosp Course NEUROLOGIC: She is awake, alert, and oriented x2. Fluent speech. Overall, cooperative with examination. Present response to visual threat bilaterally. Pupils reactive from 3 to 2 mm bilaterally. Extraocular movements intact without nystagmus. Symmetrical face. Preserved facial strength and sensation. Tongue is in midline. Palate elevates symmetrically. Motor strength examination seems to be preserved in all extremities. Normal bulk, tone, and strength. Sensory examination intact to light touch, pain and vibration. Deep tendon reflexes 2+ upper extremities, absent in lower extremities. Downgoing toes bilaterally. Coordination preserved on [id number] testing. No dysmetria or tremor. orolingual dystonic movements. IMPRESSION: Intractable seizure disorder. The patient has been noncompliant with most of her medications. Hx of fluctuating dilantin levels, frequently toxic range, per [facility] records. Patient states that she wants to continue her phenobarbital, was restarted on phenobarbital 64.8 mg twice daily. OK not to start dilantin, or other medications, she has been refusing in the past. MRI brain no acute abnormality. Continue PT. Problems: CRIS IVERSON MD Feb 08, 2017 23:15
[2017-02-09] VITALS (10 sets, daily range): BP systolic 91–108; BP diastolic 54–62; PULSE 60–66; RESP 16–75
[2017-02-09] MEDS: PANTOPRAZOLE (EC) 40 MG TAB PO SCH (06:29)
--- NOTE | 2017-02-09 08:25 | PDOCDIS ---
Discharge Instructions DIAGNOSIS Discharge Diagnosis Dilantin toxicity Seizure disorder CONDITION Patient Condition: Good HOME CARE INSTRUCTIONS: Diet Instructions: Low Fat /CholesterolSpecial Diet: Cardiac ACTIVITY: Activity Restrictions: Slowly Increase Activity FOLLOW UP/APPOINTMENTS Follow-up Plan f/u PCP in 1 -2 weeks F/U Dr Neal in 2-3 weeks DOLLY DE SOUZA MD Feb 09, 2017 08:24
[2017-02-09] MEDS: ASPIRIN (EC) 81 MG TAB PO SCH (08:36)
[2017-02-09] MEDS: FERROUS SULFATE (SR) 142 MG TAB PO SCH ×2 (08:37→21:27)
[2017-02-09] MEDS: PHENOBARBITAL 32.4 MG TAB PO SCH ×2 (08:37→21:27)
[2017-02-09] MEDS: ARIPIPRAZOLE 5 MG TAB PO SCH (08:37)
[2017-02-09] MEDS: GABAPENTIN 100 MG CAP PO SCH ×3 (08:37→21:27)
[2017-02-09] MEDS: ENOXAPARIN 30 MG/0.3 ML SYG SC SCH (08:38)
[2017-02-09] MEDS ORDERED: ARIP15TA2 PO (09:29)
[2017-02-09] MEDS ORDERED: METO-335 PO (09:29)
[2017-02-09] MEDS ORDERED: GABA100C14 PO (09:29)
[2017-02-09] MEDS ORDERED: PHEN64.8 PO (09:29)
[2017-02-09] MEDS ORDERED: ATOR40TA68 PO (09:29)
[2017-02-09] MEDS ORDERED: FER325 PO (09:29)
[2017-02-09] MEDS ORDERED: PHEN300C2 PO (09:29)
[2017-02-09] MEDS ORDERED: SERT-165 PO (09:29)
[2017-02-09] MEDS ORDERED: ASPI-664 PO (09:29)
[2017-02-09] MEDS ORDERED: HYDR12.58 PO (09:29)
[2017-02-09] MEDS ORDERED: LAMO100T PO (09:29)
[2017-02-09] MEDS ORDERED: LAMO200T PO (09:29)
[2017-02-09] MEDS ORDERED: PANT40TA4 PO (09:29)
[2017-02-09 12:25] LABS: ADD UMIC YES; UR ASCORBIC ACID NEGATIVE (NEGATIVE); UR BACTERIA MANY /HPF (NONE SEEN); UR BILIRUBIN (Dip) NEGATIVE (NEGATIVE); UR BLOOD (Dip) NEGATIVE (NEGATIVE); UR CLARITY SLIGHTLY CLOUDY (CLEAR); UR COLOR YELLOW (YELLOW); UR GLUCOSE (Dip) NEGATIVE (NEGATIVE); UR KETONES (Dip) NEGATIVE (NEGATIVE); UR LEUKOCYTE ESTERASE (Dip) 1+ Leu/ul (NEGATIVE); UR NITRITE (Dip) NEGATIVE (NEGATIVE); UR RBC 1 /HPF (0-5); UR SPECIFIC GRAVITY (Dip) 1.006 (1.003-1.030); UR SQUAMOUS EPITHELIAL CELL FEW /HPF (FEW); UR TOTAL PROTEIN (Dip) NEGATIVE (NEGATIVE); UR UROBILINOGEN (Dip) NEGATIVE (NEGATIVE)
[2017-02-09] MEDS: ATORVASTATIN 40 MG TAB PO SCH (21:27)
[2017-02-09] MEDS: SOD CHLORIDE 0.9% 1,000 ML IV SCH (21:29)
[2017-02-10 00:10] VITALS: BP 106/51; RESP 20
[2017-02-10] MEDS: PANTOPRAZOLE (EC) 40 MG TAB PO SCH (06:18)
[2017-02-10] MEDS: SOD CHLORIDE 0.9% 1,000 ML IV SCH (06:18)
[2017-02-10 07:34] VITALS: BP 108/57; RESP 19
[2017-02-10] MEDS: ARIPIPRAZOLE 5 MG TAB PO SCH (08:42)
[2017-02-10] MEDS: ASPIRIN (EC) 81 MG TAB PO SCH (08:42)
[2017-02-10] MEDS: FERROUS SULFATE (SR) 142 MG TAB PO SCH ×2 (08:42→20:54)
[2017-02-10] MEDS: GABAPENTIN 100 MG CAP PO SCH ×3 (08:42→20:54)
[2017-02-10] MEDS: ENOXAPARIN 30 MG/0.3 ML SYG SC SCH (09:00)
[2017-02-10] MEDS: PHENOBARBITAL 32.4 MG TAB PO SCH ×2 (10:16→20:55)
[2017-02-10 15:00] VITALS: BP 112/59; RESP 19
--- NOTE | 2017-02-10 17:36 | PN ---
Date/Time of Note Date/Time of Note DATE: 02/10/17 TIME: 17:34 Assessment/Plan VTE Prophylaxis VTE Prophylaxis Intervention: other Lines/Catheters IV Catheter Type (from Nrs): Saline Lock Urinary Cath still in place: No Assessment/Plan Chief Complaint/Hosp Course 71 y/o with # Hypotension r/o sepsis # Fall with poor balance , ataxic gait? cerebellum involvement # Seizure disorder with fall. # Anemia #. Hypertension # Epilepsy # Schizophrenia. #.GERD #. obesity # dyslipidemia Recs - MRI negative for acute stroke - c/w ASA/ statin - check labs - will continue on pheobarb and gabapentin for now - cw ariprazole 15 mg - SNIF placement pending Problems: Subjective 24 Hr Interval Summary Free Text/Dictation Pt waiting for Snif placement Dc orders yesterday No complains Exam/Review of Systems Vital Signs Vitals Vital Signs Date Time Temp Pulse Resp B/P Pulse Ox O2 Delivery O2 Flow Rate FiO2 02/10/17 15:00 98.0 61 19 112/59 98 Intake and Output 02/09/17 02/09/17 02/10/17 15:00 23:00 07:00 Intake Total 1000 ml Output Total 800 ml Balance 200 ml Exam xam HEENT: Normocephalic, atraumatic head. NECK: No carotid bruits. No thyromegaly. LUNGS: Clear to auscultation bilaterally. CARDIAC: Normal cardiac rhythm and sounds. ABDOMEN: Soft, nontender. EXTREMITIES: No cyanosis, clubbing or edema. NEUROLOGIC: She is awake, alert, and oriented x2. She knows the year, but not the date, and the month. Fluent speech. Overall, cooperative with examination. Pres. Deep tendon reflexes 2+ upper extremities, absent in lower extremities. Downgoing toes bilaterally. Coordination preserved on finger-to- finger testing. No dysmetria or tremor. Gait leans side to side Results Result Diagram: 02/08/17 1541 02/08/17 1541 Medications Medications Current Medications Acetaminophen/ Hydrocodone Bitart ([place] (5/325)) 1 tab Q4H PRN PO pain; Start 02/05/17 at 03:00 Ondansetron HCl (Zofran Inj) 4 mg Q6H PRN IV NAUSEA AND/OR VOMITING; Start 02/11 at 03:00 Lorazepam (Ativan) 1 mg Q6H PRN IV ANXIETY and seizures; Start 02/05/17 at 12: 30 Pantoprazole (Protonix Tab) 40 mg DAILY@06 PO Last administered on 02/10/17 06:18; Admin Dose 40 MG; Start 02/06/17 at 06:00 Gabapentin (Neurontin) 100 mg TID PO Last administered on 02/10/17 13:33; Admin Dose 100 MG; Start 02/05/17 at 13:00 Ferrous Sulfate (Slow Fe) 142 mg BID PO Last administered on 02/10/17 08:42; Admin Dose 142 MG; Start 02/05/17 at 21:00 Atorvastatin Calcium (Lipitor) 40 mg HS PO Last administered on 02/09/17 21: 27; Admin Dose 40 MG; Start 02/05/17 at 21:00 Phenobarbital (Luminal) 64.8 mg BID PO Last administered on 02/10/17 10:16; Admin Dose 64.8 MG; Start 02/05/17 at 16:00 Enoxaparin Sodium (Lovenox) 30 mg DAILY SC Last administered on 02/10/17 09: 00; Admin Dose 30 MG; Start 02/06/17 at 09:00 Aspirin (Halfprin) 81 mg DAILY PO Last administered on 02/10/17 08:42; Admin Dose 81 MG; Start 02/07/17 at 13:30 Aripiprazole 15 mg 15 mg DAILY PO Last administered on 02/10/17 08:42; Admin Dose 15 MG; Start 02/08/17 at 09:00 Sodium Chloride (NS) 1,000 ml @ 50 mls/hr Q20H IV ; Start 02/08/17 at 16:00 DOLLY DE SOUZA MD Feb 10, 2017 17:36
[2017-02-10 19:29] VITALS: BP 98/59; RESP 19
[2017-02-10] MEDS: ATORVASTATIN 40 MG TAB PO SCH (20:54)
[2017-02-11 01:36] VITALS: BP 102/56; RESP 20
[2017-02-11] MEDS: SOD CHLORIDE 0.9% 1,000 ML IV SCH ×2 (03:25→22:33)
[2017-02-11 06:17] LABS: CALCIUM 8.3 mg/dl (8.4-10.2); CREATININE 0.57 mg/dl (0.44-1.00); POTASSIUM 4.5 mmol/L (3.5-5.1)
[2017-02-11] MEDS: PANTOPRAZOLE (EC) 40 MG TAB PO SCH (06:26)
[2017-02-11 07:49] VITALS: BP 102/59; RESP 18
[2017-02-11] MEDS: ARIPIPRAZOLE 5 MG TAB PO SCH (08:28)
[2017-02-11] MEDS: GABAPENTIN 100 MG CAP PO SCH ×3 (08:28→20:41)
[2017-02-11] MEDS: FERROUS SULFATE (SR) 142 MG TAB PO SCH ×2 (08:28→20:41)
[2017-02-11] MEDS: ASPIRIN (EC) 81 MG TAB PO SCH (08:28)
[2017-02-11] MEDS: ENOXAPARIN 30 MG/0.3 ML SYG SC SCH (08:32)
[2017-02-11] MEDS: PHENOBARBITAL 32.4 MG TAB PO SCH ×2 (08:40→20:41)
--- NOTE | 2017-02-11 13:50 | PN ---
Date/Time of Note Date/Time of Note DATE: 02/11/17 TIME: 13:49 Assessment/Plan VTE Prophylaxis VTE Prophylaxis Intervention: ambulation Lines/Catheters IV Catheter Type (from Nrs): Saline Lock Urinary Cath still in place: No Assessment/Plan Chief Complaint/Hosp Course 1. Seizure disorder with hx of fall. 2. Anemia 3. Hypertension, controlled 4. Epilepsy 5. Schizophrenia. 6. GERD 7. obesity 8. dyslipidemia Problems: Assessment/Plan 1. Placement issue 2. continue meds Subjective 24 Hr Interval Summary Constitutional: improved, no complaints Exam/Review of Systems Vital Signs Vitals Vital Signs Date Time Temp Pulse Resp B/P Pulse Ox O2 Delivery O2 Flow Rate FiO2 02/11/17 07:49 98.7 60 18 102/59 98 Intake and Output 02/10/17 02/10/17 02/11/17 15:00 23:00 07:00 Intake Total 1060 ml 1060 ml Output Total 500 ml Balance 560 ml 1060 ml Exam Constitutional: alert, oriented Results Result Diagram: 02/08/17 1541 02/11/17 0434 Results 24 hrs Laboratory Tests Test 02/11/17 04:34 Sodium Level 140 Potassium Level 4.5 Chloride Level 101 Carbon Dioxide Level 32 H Anion Gap 12 Blood Urea Nitrogen 13 Creatinine 0.57 Glucose Level 76 Calcium Level 8.3 L Medications Medications Current Medications Acetaminophen/ Hydrocodone Bitart ([place] (5/325)) 1 tab Q4H PRN PO pain; Start 02/05/17 at 03:00 Ondansetron HCl (Zofran Inj) 4 mg Q6H PRN IV NAUSEA AND/OR VOMITING; Start 02/11 at 03:00 Lorazepam (Ativan) 1 mg Q6H PRN IV ANXIETY and seizures; Start 02/05/17 at 12: 30 Pantoprazole (Protonix Tab) 40 mg DAILY@06 PO Last administered on 02/11/17 06:26; Admin Dose 40 MG; Start 02/06/17 at 06:00 Gabapentin (Neurontin) 100 mg TID PO Last administered on 02/11/17 12:34; Admin Dose 100 MG; Start 02/05/17 at 13:00 Ferrous Sulfate (Slow Fe) 142 mg BID PO Last administered on 02/11/17 08:28; Admin Dose 142 MG; Start 02/05/17 at 21:00 Atorvastatin Calcium (Lipitor) 40 mg HS PO Last administered on 02/10/17 20: 54; Admin Dose 40 MG; Start 02/05/17 at 21:00 Phenobarbital (Luminal) 64.8 mg BID PO Last administered on 02/11/17 08:40; Admin Dose 64.8 MG; Start 02/05/17 at 16:00 Enoxaparin Sodium (Lovenox) 30 mg DAILY SC Last administered on 02/11/17 08: 32; Admin Dose 30 MG; Start 02/06/17 at 09:00 Aspirin (Halfprin) 81 mg DAILY PO Last administered on 02/11/17 08:28; Admin Dose 81 MG; Start 02/07/17 at 13:30 Aripiprazole 15 mg 15 mg DAILY PO Last administered on 02/11/17 08:28; Admin Dose 15 MG; Start 02/08/17 at 09:00 Sodium Chloride (NS) 1,000 ml @ 50 mls/hr Q20H IV ; Start 02/08/17 at 16:00 FAUSTO OBRIEN Feb 11, 2017 13:50
[2017-02-11 14:00] VITALS: BP 113/56; RESP 20
[2017-02-11 19:38] VITALS: BP 122/82; PULSE 68; RESP 18
[2017-02-11] MEDS: ATORVASTATIN 40 MG TAB PO SCH (20:40)
[2017-02-12 02:00] VITALS: BP 109/58; RESP 20
[2017-02-12] MEDS: PANTOPRAZOLE (EC) 40 MG TAB PO SCH (05:24)
[2017-02-12 08:00] VITALS: BP 114/53; RESP 18
[2017-02-12] MEDS: FERROUS SULFATE (SR) 142 MG TAB PO SCH ×2 (08:26→20:41)
[2017-02-12] MEDS: ASPIRIN (EC) 81 MG TAB PO SCH (08:26)
[2017-02-12] MEDS: GABAPENTIN 100 MG CAP PO SCH ×3 (08:26→20:41)
[2017-02-12] MEDS: PHENOBARBITAL 32.4 MG TAB PO SCH ×2 (08:26→20:41)
[2017-02-12] MEDS: ARIPIPRAZOLE 5 MG TAB PO SCH (08:27)
[2017-02-12] MEDS: ENOXAPARIN 30 MG/0.3 ML SYG SC SCH (08:32)
--- NOTE | 2017-02-12 12:49 | PN ---
Date/Time of Note Date/Time of Note DATE: 02/12/17 TIME: 12:48 Assessment/Plan VTE Prophylaxis VTE Prophylaxis Intervention: ambulation Lines/Catheters IV Catheter Type (from Nrs): Saline Lock Urinary Cath still in place: No Assessment/Plan Chief Complaint/Hosp Course 1. Seizure disorder with hx of fall. 2. Anemia 3. Hypertension, controlled 4. Epilepsy 5. Schizophrenia. 6. GERD 7. obesity 8. dyslipidemia Problems: Assessment/Plan 1. placement issue 2. continue seizure precaution 3. continue current treatment Subjective 24 Hr Interval Summary Constitutional: no complaints Respiratory: no complaints Cardiovascular: no complaints Exam/Review of Systems Vital Signs Vitals Vital Signs Date Time Temp Pulse Resp B/P Pulse Ox O2 Delivery O2 Flow Rate FiO2 02/12/17 08:00 97.9 65 18 114/53 98 02/11/17 19:38 Room Air Intake and Output 02/11/17 02/11/17 02/12/17 14:59 22:59 06:59 Intake Total 900 ml 1200 ml Output Total 1200 ml 1000 ml Balance -300 ml 200 ml Exam Constitutional: alert, oriented Neck: supple Respiratory: clear to auscultation Cardiovascular: regular rate and rhythm Results Result Diagram: 02/08/17 1541 02/11/17 0434 Medications Medications Current Medications Acetaminophen/ Hydrocodone Bitart ([place] (5/325)) 1 tab Q4H PRN PO pain; Start 02/05/17 at 03:00 Ondansetron HCl (Zofran Inj) 4 mg Q6H PRN IV NAUSEA AND/OR VOMITING; Start 02/11 at 03:00 Lorazepam (Ativan) 1 mg Q6H PRN IV ANXIETY and seizures; Start 02/05/17 at 12: 30 Pantoprazole (Protonix Tab) 40 mg DAILY@06 PO Last administered on 02/11/17 06:26; Admin Dose 40 MG; Start 02/06/17 at 06:00 Gabapentin (Neurontin) 100 mg TID PO Last administered on 02/12/17 12:36; Admin Dose 100 MG; Start 02/05/17 at 13:00 Ferrous Sulfate (Slow Fe) 142 mg BID PO Last administered on 02/12/17 08:26; Admin Dose 142 MG; Start 02/05/17 at 21:00 Atorvastatin Calcium (Lipitor) 40 mg HS PO Last administered on 02/11/17 20: 40; Admin Dose 40 MG; Start 02/05/17 at 21:00 Phenobarbital (Luminal) 64.8 mg BID PO Last administered on 02/12/17 08:26; Admin Dose 64.8 MG; Start 02/05/17 at 16:00 Enoxaparin Sodium (Lovenox) 30 mg DAILY SC Last administered on 02/12/17 08: 32; Admin Dose 30 MG; Start 02/06/17 at 09:00 Aspirin (Halfprin) 81 mg DAILY PO Last administered on 02/12/17 08:26; Admin Dose 81 MG; Start 02/07/17 at 13:30 Aripiprazole 15 mg 15 mg DAILY PO Last administered on 02/12/17 08:27; Admin Dose 15 MG; Start 02/08/17 at 09:00 Sodium Chloride (NS) 1,000 ml @ 50 mls/hr Q20H IV ; Start 02/08/17 at 16:00 FAUSTO OBRIEN Feb 12, 2017 12:49
[2017-02-12 14:01] VITALS: BP 102/50; RESP 18
[2017-02-12 19:59] VITALS: BP 95/60; PULSE 60; RESP 18
[2017-02-12] MEDS: SOD CHLORIDE 0.9% 1,000 ML IV SCH (20:00)
[2017-02-12] MEDS: ATORVASTATIN 40 MG TAB PO SCH (20:41)
[2017-02-13 02:20] VITALS: BP 94/53; RESP 18
[2017-02-13] MEDS: PANTOPRAZOLE (EC) 40 MG TAB PO SCH (05:24)
[2017-02-13 08:13] VITALS: BP 104/52; RESP 18
[2017-02-13] MEDS: ARIPIPRAZOLE 5 MG TAB PO SCH (08:36)
[2017-02-13] MEDS: FERROUS SULFATE (SR) 142 MG TAB PO SCH ×2 (08:36→20:30)
[2017-02-13] MEDS: GABAPENTIN 100 MG CAP PO SCH ×3 (08:37→20:30)
[2017-02-13] MEDS: ASPIRIN (EC) 81 MG TAB PO SCH (08:37)
[2017-02-13] MEDS: PHENOBARBITAL 32.4 MG TAB PO SCH ×2 (08:37→20:30)
[2017-02-13] MEDS: ENOXAPARIN 30 MG/0.3 ML SYG SC SCH (08:54)
--- NOTE | 2017-02-13 12:09 | PN ---
Date/Time of Note Date/Time of Note DATE: 02/13/17 TIME: 12:08 Assessment/Plan VTE Prophylaxis VTE Prophylaxis Intervention: ambulation Lines/Catheters IV Catheter Type (from Nrs): Saline Lock Urinary Cath still in place: No Assessment/Plan Chief Complaint/Hosp Course 1. Seizure disorder with hx of fall, better, no more episodes. 2. Anemia 3. Hypertension, controlled 4. Epilepsy 5. Schizophrenia. 6. GERD 7. obesity 8. dyslipidemia Problems: Assessment/Plan 1. placement issue 2. continue current treatment Subjective 24 Hr Interval Summary Constitutional: improved, no complaints Exam/Review of Systems Vital Signs Vitals Vital Signs Date Time Temp Pulse Resp B/P Pulse Ox O2 Delivery O2 Flow Rate FiO2 02/13/17 08:13 98.0 65 18 104/52 90 02/12/17 19:59 Room Air Intake and Output 02/12/17 02/12/17 02/13/17 15:00 23:00 07:00 Intake Total 1100 ml 1200 ml Output Total 800 ml 1000 ml Balance 300 ml 200 ml Exam Constitutional: alert, oriented Respiratory: clear to auscultation Cardiovascular: regular rate and rhythm Results Result Diagram: 02/11/17 0434 Medications Medications Current Medications Acetaminophen/ Hydrocodone Bitart ([place] (5/325)) 1 tab Q4H PRN PO pain; Start 02/05/17 at 03:00 Ondansetron HCl (Zofran Inj) 4 mg Q6H PRN IV NAUSEA AND/OR VOMITING; Start 02/11 at 03:00 Lorazepam (Ativan) 1 mg Q6H PRN IV ANXIETY and seizures; Start 02/05/17 at 12: 30 Pantoprazole (Protonix Tab) 40 mg DAILY@06 PO Last administered on 02/13/17 05:24; Admin Dose 40 MG; Start 02/06/17 at 06:00 Gabapentin (Neurontin) 100 mg TID PO Last administered on 02/13/17 08:37; Admin Dose 100 MG; Start 02/05/17 at 13:00 Ferrous Sulfate (Slow Fe) 142 mg BID PO Last administered on 02/13/17 08:36; Admin Dose 142 MG; Start 02/05/17 at 21:00 Atorvastatin Calcium (Lipitor) 40 mg HS PO Last administered on 02/12/17 20: 41; Admin Dose 40 MG; Start 02/05/17 at 21:00 Phenobarbital (Luminal) 64.8 mg BID PO Last administered on 02/13/17 08:37; Admin Dose 64.8 MG; Start 02/05/17 at 16:00 Enoxaparin Sodium (Lovenox) 30 mg DAILY SC Last administered on 02/13/17 08: 54; Admin Dose 30 MG; Start 02/06/17 at 09:00 Aspirin (Halfprin) 81 mg DAILY PO Last administered on 02/13/17 08:37; Admin Dose 81 MG; Start 02/07/17 at 13:30 Aripiprazole 15 mg 15 mg DAILY PO Last administered on 02/13/17 08:36; Admin Dose 15 MG; Start 02/08/17 at 09:00 Sodium Chloride (NS) 1,000 ml @ 50 mls/hr Q20H IV ; Start 02/08/17 at 16:00 FAUSTO OBRIEN Feb 13, 2017 12:09
[2017-02-13] MEDS: SOD CHLORIDE 0.9% 1,000 ML IV SCH (14:24)
[2017-02-13 14:59] VITALS: BP 123/61; RESP 18
[2017-02-13 19:59] VITALS: BP 113/64; RESP 19
[2017-02-13] MEDS: ATORVASTATIN 40 MG TAB PO SCH (20:30)
[2017-02-14 02:18] VITALS: BP 106/52; RESP 19
[2017-02-14] MEDS: PANTOPRAZOLE (EC) 40 MG TAB PO SCH (05:11)
[2017-02-14 07:33] VITALS: BP 97/61; PULSE 60; RESP 18
[2017-02-14] MEDS: ASPIRIN (EC) 81 MG TAB PO SCH (08:54)
[2017-02-14] MEDS: ARIPIPRAZOLE 5 MG TAB PO SCH (08:54)
[2017-02-14] MEDS: PHENOBARBITAL 32.4 MG TAB PO SCH (08:55)
[2017-02-14] MEDS: FERROUS SULFATE (SR) 142 MG TAB PO SCH (08:55)
[2017-02-14] MEDS: GABAPENTIN 100 MG CAP PO SCH ×2 (08:55→12:28)
[2017-02-14] MEDS: ENOXAPARIN 30 MG/0.3 ML SYG SC SCH (09:02)
[2017-02-14] MEDS: SOD CHLORIDE 0.9% 1,000 ML IV SCH (12:00)
--- NOTE | 2017-02-14 12:41 | PN ---
Date/Time of Note Date/Time of Note DATE: 02/14/17 TIME: 12:40 Assessment/Plan VTE Prophylaxis VTE Prophylaxis Intervention: ambulation Lines/Catheters IV Catheter Type (from Nrs): Saline Lock Urinary Cath still in place: No Assessment/Plan Chief Complaint/Hosp Course 1. Seizure disorder with hx of fall, better, no more episodes. 2. Anemia 3. Hypertension, controlled 4. Epilepsy 5. Schizophrenia. 6. GERD 7. obesity 8. dyslipidemia Problems: Assessment/Plan 1. Placement issue 2. continue current treatment Subjective 24 Hr Interval Summary Constitutional: improved, no complaints Exam/Review of Systems Vital Signs Vitals Vital Signs Date Time Temp Pulse Resp B/P Pulse Ox O2 Delivery O2 Flow Rate FiO2 02/14/17 07:33 98.3 60 18 97/61 97 Room Air Intake and Output 02/13/17 02/13/17 02/14/17 15:00 23:00 07:00 Intake Total 1120 ml 750 ml Output Total 1700 ml 700 ml Balance -580 ml 50 ml Exam no seizure episodes Constitutional: alert, oriented Neck: supple Respiratory: clear to auscultation Cardiovascular: regular rate and rhythm Gastrointestinal: soft Results Result Diagram: 02/11/17 0434 Medications Medications Current Medications Acetaminophen/ Hydrocodone Bitart ([place] (5/325)) 1 tab Q4H PRN PO pain; Start 02/05/17 at 03:00 Ondansetron HCl (Zofran Inj) 4 mg Q6H PRN IV NAUSEA AND/OR VOMITING; Start 02/11 at 03:00 Lorazepam (Ativan) 1 mg Q6H PRN IV ANXIETY and seizures; Start 02/05/17 at 12: 30 Pantoprazole (Protonix Tab) 40 mg DAILY@06 PO Last administered on 02/14/17 05:11; Admin Dose 40 MG; Start 02/06/17 at 06:00 Gabapentin (Neurontin) 100 mg TID PO Last administered on 02/14/17 12:28; Admin Dose 100 MG; Start 02/05/17 at 13:00 Ferrous Sulfate (Slow Fe) 142 mg BID PO Last administered on 02/14/17 08:55; Admin Dose 142 MG; Start 02/05/17 at 21:00 Atorvastatin Calcium (Lipitor) 40 mg HS PO Last administered on 11/19/17at 20: 30; Admin Dose 40 MG; Start 02/05/17 at 21:00 Phenobarbital (Luminal) 64.8 mg BID PO Last administered on 02/14/17 08:55; Admin Dose 64.8 MG; Start 02/05/17 at 16:00 Enoxaparin Sodium (Lovenox) 30 mg DAILY SC Last administered on 02/14/17 09: 02; Admin Dose 30 MG; Start 02/06/17 at 09:00 Aspirin (Halfprin) 81 mg DAILY PO Last administered on 02/14/17 08:54; Admin Dose 81 MG; Start 02/07/17 at 13:30 Aripiprazole 15 mg 15 mg DAILY PO Last administered on 02/14/17 08:54; Admin Dose 15 MG; Start 02/08/17 at 09:00 Sodium Chloride (NS) 1,000 ml @ 50 mls/hr Q20H IV ; Start 02/08/17 at 16:00 FAUSTO OBRIEN Feb 14, 2017 12:41
== END 2017-02-14 16:00 | DRG 101 ==
LOC: MS4 23:07 → MS1 02-09 23:30
PROVIDERS: ADMIT Internal Medicine Nephrology; ATTEND Internal Medicine Nephrology
DX: G40.919 Epilepsy, unspecified, intractable, without status epilepticus (principal); I95.9 Hypotension, unspecified; F20.9 Schizophrenia, unspecified; I10 Essential (primary) hypertension; K21.9 Gastro-esophageal reflux disease without esophagitis; E78.5 Hyperlipidemia, unspecified; T42.0X5A Adverse effect of hydantoin derivatives, initial encounter; Y92.129 Unspecified place in nursing home as the place of occurrence of the external cause; E66.9 Obesity, unspecified; Z91.14 Patient's other noncompliance with medication regimen
CPT/HCPCS: 70551; 80048; 80053; 80185; 81001; 83735; 84100; 85025; 93880; 97116; 97162; 97530; J1650; J7030; J7040